=== PATIENT | female | born 1970 | race Caucasian/White ===

== ENCOUNTER 2017-09-19 12:58 | Day surgery (SDC) | payer MEDICARE ==
[~2017-09-19 12:58] MED LIST: Buffered Lidocaine 0.9% SYRIN* 5 ML/SYR SYRINGE INTRADERM ONE; Naloxone* 0.4 MG/ML 1 ML VIAL IV PRN; Ondansetron INJ* 2 MG/ML VIAL IV PRN; fentaNYL* 50 MCG/ML 2 ML VIAL (100 MCG VIAL) IV PRN
[2017-09-19] MEDS ORDERED: Buffered Lidocaine 0.9% SYRIN* 5 ML/SYR SYRINGE ONE (13:14)
[2017-09-19] MEDS ORDERED: fentaNYL* 50 MCG/ML 2 ML VIAL (100 MCG VIAL) ONE (15:11)
[2017-09-19] MEDS ORDERED: Midazolam* 1 MG/ML 2 ML VIAL (2 MG) ONE (15:11)
[2017-09-19] MEDS ORDERED: Propofol* 10 MG/ML 20 ML BTL IV PUSH ONE (15:47)
[2017-09-19] MEDS ORDERED: Lidocaine 2% PF * 5 ML VIAL ONE (15:47)
[2017-09-19] MEDS ORDERED: Naloxone* 0.4 MG/ML 1 ML VIAL IV PRN (15:55)
[2017-09-19 16:30] VITALS: BP 118/75
--- NOTE | 2017-09-20 03:38 | PRO ---
CC: KERWIN Sheehan * DATE OF PROCEDURE: 09/19/17 - [facility] OPERATIVE PROCEDURE: Esophagogastroduodenoscopy to the second portion of the duodenum. SURGEON: Yamilex Whitney MD ANESTHESIA: MAC. HISTORY OF PRESENT ILLNESS: Gertrude is a pleasant 47-year-old female who presents today for diagnostic endoscopy for morbid obesity and pre-bariatric screening for possible gastric sleeve. She denies any current gastrointestinal complaints, but does admit to a family history of gastric cancer. PREOPERATIVE DIAGNOSES: 1. Morbid obesity. 2. Pre-bariatric screening. 3. Family history of gastric cancer. POSTOPERATIVE DIAGNOSES: 1. Moderate antral gastritis with biopsies from the antrum and body with CLOtest to rule out H. pylori. 2. Normal appearing Z-line at 35 cm with biopsies. 3. Normal appearing duodenum to the second portion with biopsies to rule out celiac disease. 4. Normal mid and proximal esophagus. RECOMMENDATIONS: 1. We will follow up with biopsy results and determine further plan of care as necessary. DESCRIPTION OF PROCEDURE: Esophagogastroduodenoscopy was explained in detail to the patient. The risks, benefits, complications, alternatives, and possibilities of missed lesions were explained and understood. Complications included, but were not limited to reaction to anesthesia, aspiration, increased risk of bleeding and perforation. All questions were answered. The patient demonstrated understanding of the conversation and informed consent was obtained. Next, the patient was brought to the endoscopy suite, placed in the left lateral recumbent position where blood pressure, cardiac and oxygen monitors were applied. The patient was found to be a fit candidate for moderate anesthesia care. After adequate IV sedation was achieved, a bite-block was placed. Next, a standard adult endoscope was inserted per os under direct visualization to the first and second portions of duodenum. First and second portions of the duodenum were grossly unremarkable. Cold forceps biopsies were obtained to rule out celiac disease. Further withdrawal of the endoscope into the gastric lumen revealed moderate erythematous changes consistent with antral gastritis. Cold forceps biopsies were obtained from the antrum and body and CLOtest was performed to rule out H. pylori. On retroflexion, the patient had a normal gastric cardia sling. Further withdrawal of the endoscope into the distal esophagus revealed a normal appearing Z-line. Cold forceps biopsies were obtained from this area. The rest of the tubular esophagus was normal appearing. Air was then removed from the patient. Endoscope was removed from the patient. The patient tolerated the procedure well. There were no immediate complications. 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 Thank you, KERWIN Sheehan , for allowing us to participate in the care of your patient. If you should have any further questions or concerns, please do not hesitate to contact us. [id number]/[facility] #: [id number] JAYLA
== END 2017-09-19 16:51 | disposition home or self-care (01) ==
LOC: OR 12:58
PROVIDERS: ATTEND Internal Medicine Gastroenterology
DX: E66.01 Morbid (severe) obesity due to excess calories (principal); Z68.41 Body mass index [BMI] 40.0-44.9, adult; K29.50 Unspecified chronic gastritis without bleeding; K21.9 Gastro-esophageal reflux disease without esophagitis; E03.9 Hypothyroidism, unspecified; E78.00 Pure hypercholesterolemia, unspecified
CPT/HCPCS: 87077; 88305; 88342; J2250; J2704; J3010

== ENCOUNTER 2018-03-12 11:33 | Inpatient (IN) | payer MEDICARE, OTHER ==
[~2018-03-12 11:33] MED LIST changes: +Famotidine IV* 10 MG/ML 2 ML (20 mg) IV ONE; -Naloxone* 0.4 MG/ML 1 ML VIAL IV PRN; -Ondansetron INJ* 2 MG/ML VIAL IV PRN; -fentaNYL* 50 MCG/ML 2 ML VIAL (100 MCG VIAL) IV PRN
[2018-03-12] MEDS ORDERED: Famotidine IV* 10 MG/ML 2 ML (20 mg) ONE (11:52)
[2018-03-12] MEDS ORDERED: ceFAZolin 2 GM PREMIX (*) 2 GM/50 ML BAG IVPB ONE (11:52)
[2018-03-12] MEDS ORDERED: Buffered Lidocaine 0.9% SYRIN* 5 ML/SYR SYRINGE ONE (11:53)
[2018-03-12] MEDS ORDERED: Heparin VIAL(*) 5000 UNITS/ML VIAL (FIVE THOUSAND) ONE (11:57)
[2018-03-12] MEDS ORDERED: Dexamethasone IV* 4 MG/ML 1 ML (4 MG) ONE (11:58)
[2018-03-12] MEDS ORDERED: Ketorolac INJ* 30 MG/ML 1 ML VIAL ONE (11:58)
[2018-03-12] MEDS ORDERED: fentaNYL* 50 MCG/ML 5 ML VIAL (250 MCG VIAL) ONE (11:58)
[2018-03-12] MEDS ORDERED: Lidocaine 2% PF * 5 ML VIAL ONE (11:58)
[2018-03-12] MEDS ORDERED: Ondansetron INJ* 2 MG/ML VIAL ONE ×2 (11:58→16:03)
[2018-03-12] MEDS ORDERED: Midazolam* 1 MG/ML 5 ML VIAL (5 MG) ONE (11:58)
[2018-03-12] MEDS ORDERED: Propofol* 10 MG/ML 20 ML BTL IV PUSH ONE (11:58)
[2018-03-12] MEDS ORDERED: Neostigmine Methylsulfate* 2 MG/2 ML SYRINGE ONE (12:18)
[2018-03-12] MEDS ORDERED: Glycopyrrolate IV* 0.2 MG/ML 1 ML VIAL ONE (12:18)
[2018-03-12] MEDS ORDERED: Rocuronium* 10 MG/ML VIAL ONE (12:45)
[2018-03-12] MEDS ORDERED: Methylene Blue 0.5 %* 50 MG/10 ML AMP IV ONE (12:56)
[2018-03-12] MEDS ORDERED: Bupivacaine 0.5% PF 10 ML VIAL INJ ONE (12:59)
[2018-03-12] MEDS ORDERED: Bupivacaine 0.25% W/EPI* 10 ML SDV ONE (13:23)
[2018-03-12] MEDS ORDERED: EPHEDrine (Pressors)* 50 MG/ML VIAL ONE (14:10)
[2018-03-12] MEDS ORDERED: Scopolamine 1.5 mg* PATCH TRANSDERM PRN (14:59)
[2018-03-12] MEDS ORDERED: Naloxone* 0.4 MG/ML 1 ML VIAL IV PRN (14:59)
[2018-03-12] MEDS ORDERED: Ondansetron INJ* 2 MG/ML VIAL IV PRN (14:59)
[2018-03-12] MEDS ORDERED: fentaNYL* 50 MCG/ML 2 ML VIAL (100 MCG VIAL) ONE ×4 (15:46→17:12)
[2018-03-12] MEDS ORDERED: Acetaminophen ADULT LIQ* 650 MG/20.3 ML UDC PO PRN (15:52)
[2018-03-12] MEDS ORDERED: diPHENhydraMINE IV* 50 MG/ML 1 ml VIAL (BENADRYL) SLOW PUSH PRN (15:52)
[2018-03-12] MEDS ORDERED: Scopolamine 1.5 mg* PATCH ONE (16:02)
--- NOTE | 2018-03-12 16:02 | BRIEFOPN ---
Brief Operative Note - Surgery Procedures: PREOP DX: MORBID OBESITY POSTOP DX: SAME PROC: LRYGB SURG: MECENAS ASSIST: KYLE BELTRAN; Guille CALDERÓN MD ANES: GET/TOAL EBL: <50 ML IVF: 2.4 L LR SPEC: NONE DRAIN: NONE COMPL: NONE COND: STABLE TO RR; EXTUBATED. FINDINGS: OMENTAL ADHESIONS TO ABDOMINAL WALL MESH IN MID TO LOWER ABDOMEN.
[2018-03-12] MEDS: fentaNYL* 50 MCG/ML 2 ML VIAL (100 MCG VIAL) IV PRN ×5 (16:21→17:13)
[2018-03-12] MEDS: HYDROmorphone INJ* 0.5 MG/0.5 ML SYRINGE IV PRN ×2 (19:04→22:26)
[2018-03-12] MEDS: Famotidine IV* 10 MG/ML 2 ML (20 mg) IV SLOW PU SCH (21:29)
[2018-03-12] MEDS: Ondansetron INJ* 2 MG/ML VIAL IV PRN (22:55)
[2018-03-13] MEDS: HYDROmorphone INJ* 0.5 MG/0.5 ML SYRINGE IV PRN ×3 (01:44→09:12)
--- NOTE | 2018-03-13 04:20 | OP ---
: [facility]; Isabel MorenoKERWIN * DATE OF OPERATION: 03/12/18 - ROOM #353 DATE OF : 66. SURGEON: Darrell Gutiérrez MD ASSISTANTS: KYLE Harding and Yo Hanson MD PRE-OP DIAGNOSIS: Morbid obesity. POST-OP DIAGNOSIS: Morbid obesity. OPERATIVE PROCEDURE: Laparoscopic Tracy-en-Y gastric bypass. ESTIMATED BLOOD LOSS: Less than 50 mL. IV FLUIDS: 2.4 L crystalloid. SPECIMEN: None. DRAINS: None. COMPLICATIONS: None. COUNTS: Instrument, needle, sponge counts correct. OPERATIVE FINDINGS: There were extensive adhesions of the omentum to the abdominal wall hernia mesh, which was a 6 x 10 oval lightweight mesh covering in the area from just above the umbilicus to the lower abdomen more towards the right lower quadrant. DESCRIPTION OF PROCEDURE: The patient was brought to the operating room, placed on the table supine. Sequential compression devices were placed on both lower extremities. General anesthesia was administered. Arango catheter placed and she was positioned and padded appropriately. The time-out was performed after the prep and drape, and after she received antibiotics. Local anesthetic was infiltrated into the skin and soft tissue prior to each incision. Entry to the abdomen was through a left upper quadrant incision accommodating a 12-mm optical trocar. After accessing peritoneal cavity, carbon dioxide was insufflated to a pressure of 15 mmHg. Under direct visualization, 5-mm trocar was placed in the left upper quadrant laterally due to the presence of extensive omental adhesions in the mid abdomen. LigaSure was then used to complete the adhesiolysis and there was abdominal wall hernia mesh identified extending from just above the umbilicus down to the lower abdomen, which favored the right lower quadrant. After completing adhesiolysis in the mid abdomen, a 12-mm blunt port was placed in the supraumbilical region and then a 12-mm blunt port placed in the right upper quadrant. The adhesiolysis was completed completely freeing the omentum. The small bowel appeared to be free of any adhesions. Subsequently, a 5-mm trocar was placed in the right upper quadrant medially and then Melissa liver retractor was placed percutaneously in the subxiphoid position and used to elevate the left lobe of the liver. The gastric anatomy appeared normal. The cardia of the stomach was freed using a combination of blunt dissection and LigaSure and the left tali of the diaphragm was identified. Then, the perigastric dissection was undertaken in the lesser curvature to enter the lesser sac, and a gastric patch was created with several firings of the Endo-MIKE stapler with barrios cartridges. The gastric pouch approximated 20 to 30 mL volume. The staple lines were inspected and noted to be intact and hemostatic. The omentum was then retracted superiorly and ligament of Treitz was identified and the jejunum was measured out to 40 cm to 50 cm at this point. The jejunum was brought in proximity to the gastric pouch and then stay sutures of 2-0 silk were placed along the lateral gastric pouch staple line and then the gastrojejunal anastomosis was created with the Endo-MIKE stapler with a 30- mm cartridge, and this was closed with a running 3-0 PDS over a 34-American orogastric tube. Lastly , the loop was divided to the left of the anastomosis and then the gastrojejunal anastomosis was tested with methylene blue dye instilled through the orogastric tube, and no leak was identified. The Tracy limb was then measured out 75 cm and a functional end-to-side jejunojejunostomy was created with a 60-mm barrios cartridge on the linear stapler. The common enterotomy was run closed with 3-0 PDS running it to and fro. The mesenteric defect was closed with 3-0 silk and a combination of running in [id number] fashion. Inspection revealed the bowel to be oriented properly. Hemostasis was excellent. Ports were removed under direct visualization and carbon dioxide was released. Skin incisions were closed with 4-0 Monocryl in subcuticular fashion. Steri-strips were applied. The patient tolerated the procedure well, was extubated, and transferred to Recovery in stable condition. [id number]/[facility] #: [id number] [facility] HOSPITALYasir
[2018-03-13] MEDS: Heparin VIAL(*) 5000 UNITS/ML VIAL (FIVE THOUSAND) SUBCUT SCH ×3 (05:38→22:31)
[2018-03-13] MEDS: Ondansetron INJ* 2 MG/ML VIAL IV PRN ×3 (05:45→17:56)
--- NOTE | 2018-03-13 08:09 | PN ---
Progress Note - Progress Note Date of Service: 03/13/18 SOAP: Subjective: Minimal pain from incision. No N/V. Objective: Vital Signs Temp 98.6 F 03/13/18 07:15 Pulse 91 03/13/18 07:15 Resp 18 03/13/18 07:24 BP 136/56 03/13/18 07:15 Pulse Ox 98 03/13/18 07:24 Gen: NAD Abd: dressings c/d/i. soft and minimally tender. Intake & Output 03/12/18 03/13/18 03/13/18 18:59 06:59 18:59 Intake Total 2800 980 994 Output Total 375 1550 Balance 2425 -570 994 Weight 241 lb Intake: IV Fluids 2800 980 994 LR 2800 980 994 Oral 0 Output: Arango 375 1550 Other: # Bowel Movements 0 Assessment: POD#1 s/p LRYGB. Doing well. Plan: Adv diet. Ambulate. Home tomorrow.
[2018-03-13] MEDS: Famotidine IV* 10 MG/ML 2 ML (20 mg) IV SLOW PU SCH ×2 (09:13→21:09)
[2018-03-13] MEDS: Nystatin TOP POWDER* 15 GM BTL TOPICAL SCH ×4 (13:35→22:30)
[2018-03-13] MEDS: HYDROcodone/ACET. 7.5/325 LIQ* 15 ML UDC PO PRN ×2 (13:39→19:42)
[2018-03-13] MEDS: D5W 1/2 NS KCl 20 Meq 1000 ML* 1,000 ML IV SCH ×2 (13:58→22:35)
[2018-03-13] MEDS ORDERED: Levothyroxine TAB* 25 MCG TAB PO SCH (18:00)
[2018-03-13] MEDS ORDERED: Amitriptyline TAB* 50 MG PO SCH (21:00)
[2018-03-13] MEDS: BuPROPion XL* 150 MG TAB.XL PO SCH (21:08)
[2018-03-13] MEDS: Pregabalin CAP(*) 25 MG PO SCH (22:28)
[2018-03-14] MEDS: HYDROcodone/ACET. 7.5/325 LIQ* 15 ML UDC PO PRN ×2 (03:22→10:19)
[2018-03-14] MEDS: Heparin VIAL(*) 5000 UNITS/ML VIAL (FIVE THOUSAND) SUBCUT SCH (06:04)
[2018-03-14] MEDS: D5W 1/2 NS KCl 20 Meq 1000 ML* 1,000 ML IV SCH (06:42)
[2018-03-14] MEDS: Pregabalin CAP(*) 25 MG PO SCH (07:30)
[2018-03-14] MEDS: Famotidine IV* 10 MG/ML 2 ML (20 mg) IV SLOW PU SCH (07:30)
[2018-03-14] MEDS: Nystatin TOP POWDER* 15 GM BTL TOPICAL SCH (07:30)
[2018-03-14] MEDS: BuPROPion XL* 150 MG TAB.XL PO SCH (07:30)
[2018-03-14] MEDS: HYDROmorphone INJ* 0.5 MG/0.5 ML SYRINGE IV PRN (07:37)
[2018-03-14 09:23] VITALS: BP 145/70
--- NOTE | 2018-03-14 13:10 | DS ---
CC: Isabel Moreno NP * DISCHARGE SUMMARY: DATE OF ADMISSION: 03/12/18 DATE OF DISCHARGE: 03/14/18 PATIENT OF: Darrell Gutiérrez MD * (DICTATED BY KYLE HARMON) ADMISSION DIAGNOSES: 1. Morbid obesity. 2. Gastroesophageal reflux disease. 3. Hypertension. DISCHARGE DIAGNOSES: 1. Morbid obesity. 2. Gastroesophageal reflux disease. 3. Hypertension. ADMITTING PHYSICIAN: Darrell Gutiérrez MD CONSULTATIONS: None. PROCEDURES: Laparoscopic Tracy-en-Y gastric bypass on 03/12/18. BRIEF MEDICAL HISTORY: Mrs. Vincent is a pleasant 47-year-old female who has been struggling with morbid obesity and associated complication for most of her adult life. She has tried multiple attempts to lose weight with dietary and exercise regimen that unfortunately failed to maintain any weight loss. She was evaluated at the [facility] and found to be a good candidate for a gastric bypass surgery to be performed on a later date. HOSPITAL COURSE: The patient was admitted on 03/12/18 via Same-Day Surgery and was brought to the operating room later that day. She underwent a laparoscopic Tracy-en- Y gastric bypass by Dr. Gutiérrez that went smoothly with no immediate complications. After recovery, she was transferred to the surgical floor for observation. She did relatively well with only mild incisional discomfort that was well tolerated using pain medicine as needed. She was ambulatory out of bed on the same night and denied any significant complaints. Her vitals were checked on a regular basis and the patient was afebrile. On the following morning, she started bariatric stage 1 clear liquid diet that she tolerated well. She had no complaints of nausea or vomiting, only occasional epigastric discomfort from "gas pain" that eventually went away upon discharge. On discharge morning, she was in a good spirit, walking around, and ready to go home. Her abdominal exam revealed soft abdomen, nontender, and nondistended and her incisions were clean, dry, and intact. She will be discharged home today and will follow up with Dr. Gutiérrez next week at the [facility]. DISCHARGE MEDICATIONS: Include: 1. Amitriptyline 50 mg p.o. q.h.s. 2. Bupropion 150 mg p.o. b.i.d. 3. Tums chewable 1 to 2 tablets p.o. as needed for heartburn. 4. Flexeril 10 mg p.o. b.i.d. 5. Synthroid 25 mcg p.o. daily. 6. Multivitamin chewable 1 tablet daily. 7. Lortab Elixir 1 tablespoon every 4 to 6 hours as needed for pain. 8. MiraLAX 17 g packet p.o. q. day as needed for constipation. 9. Lyrica 75 mg p.o. b.i.d. 10. Rosuvastatin 10 mg p.o. q.h.s. 11. Ambien 5 mg p.o. q.h.s. as needed for insomnia. PROBLEM LIST: Morbid obesity, status post laparoscopic Tracy-en-Y gastric bypass on 03/12/18. KYLE HARMON [id number]/[facility] #: [id number] [facility]ERYasir
[2018-03-15] MEDS ORDERED: Scopolamine PATCH Remove* 1 NOTE MISC PATCH OFF ONE (15:01)
== END 2018-03-14 10:40 | disposition home or self-care (01) | DRG 621 ==
LOC: AA 11:33 → SSU 15:52
PROVIDERS: ADMIT Surgery; ATTEND Surgery
PROC: 0DNU4ZZ Release Omentum, Percutaneous Endoscopic Approach (ICD-10-PCS; 2018-03-12)
PROC: 0D164ZA Bypass Stomach to Jejunum, Percutaneous Endoscopic Approach (ICD-10-PCS; principal; 2018-03-12 13:15)
DX: E66.01 Morbid (severe) obesity due to excess calories (principal); K21.9 Gastro-esophageal reflux disease without esophagitis; I10 Essential (primary) hypertension; G47.33 Obstructive sleep apnea (adult) (pediatric); E78.5 Hyperlipidemia, unspecified; G89.29 Other chronic pain; M54.9 Dorsalgia, unspecified; K66.0 Peritoneal adhesions (postprocedural) (postinfection); F41.9 Anxiety disorder, unspecified; F32.9 Major depressive disorder, single episode, unspecified; M19.90 Unspecified osteoarthritis, unspecified site; E03.9 Hypothyroidism, unspecified; M79.7 Fibromyalgia; Z96.9 Presence of functional implant, unspecified; Z90.722 Acquired absence of ovaries, bilateral; Z90.49 Acquired absence of other specified parts of digestive tract; Z98.1 Arthrodesis status; Z80.0 Family history of malignant neoplasm of digestive organs; Z80.3 Family history of malignant neoplasm of breast; Z82.61 Family history of arthritis; Z68.41 Body mass index [BMI] 40.0-44.9, adult; Z88.8 Allergy status to other drugs, medicaments and biological substances; Z91.041 Radiographic dye allergy status; Z83.3 Family history of diabetes mellitus; Z82.49 Family history of ischemic heart disease and other diseases of the circulatory system; Z80.8 Family history of malignant neoplasm of other organs or systems; Z88.5 Allergy status to narcotic agent
CPT/HCPCS: 43644; A9270-GY; C1776; J0690; J1100; J1170; J1200; J1644; J1885; J2250; J2405; J2704; J3010

== ENCOUNTER 2018-11-24 11:53 | Emergency (ER) | payer MEDICARE ==
--- NOTE | 2018-11-24 13:39 | ED ---
Lower Extremity - HPI Summary HPI Summary: Patient's a 48-year-old female presenting to the ED with a right ankle injury. She states she was walking her dogs when she twisted her right ankle. She has been unable to ambulate since that time. This occurred 3 hours [employer]LECT[employer]. She has not taken anything [id number] for relief. She denies any swelling or ecchymosis. Denies any numbness or tingling. She states she is otherwise healthy, takes no medications and denies any blood thinners. She has never injured the ankle the past. - History of Current Complaint Chief Complaint: EDExtremityLower Stated Complaint: RT ANKLE INJURY PER PT Time Seen by Provider: 11/24/18 12:09 Hx Obtained From: Patient Mechanism Of Injury: Twisted Onset of Pain: Hours Onset/Duration: Hours Severity Initially: Mild Severity Currently: Mild Pain Intensity: 8 Pain Scale Used: 0-10 Numeric Location: Is Discrete @ - right ankle pain without swelling or ecchymosis Character Of Pain: Aching Associated Signs And Symptoms: Negative: Swelling, Redness, Bruising Aggravating Factor(s): Standing, Ambulation Alleviating Factor(s): Rest Able to Bear Weight: No - Risk Factors Gout Risk Factors: Negative DVT Risk Factors: Negative Septic Arthritis Risk Factor: Negative - Allergies/Home Medications Allergies/Adverse Reactions: Allergies Allergy/AdvReac Type Severity Reaction Status Date / Time celecoxib [From Celebrex] Allergy rash, Verified 11/24/18 11:59 ITCHING, DIFFICULTY BREATHING codeine Allergy Stomach Verified 11/24/18 11:59 Cramps duloxetine Allergy rash, Verified 11/24/18 11:59 ITCHING, DIFFICULTY BREATHING Iodinated Contrast- Oral and Allergy rash, Verified 11/24/18 11:59 IV Dye ITCHING, DIFFICULTY BREATHING PMH/Surg Hx/FS Hx/Imm Hx Previously Healthy: Yes Endocrine/Hematology History: Reports: Hx Thyroid Disease - hypo Cardiovascular History: Denies: Other Cardiovascular Problems/Disorders Respiratory History: Reports: Hx Asthma - WHEN YOUNGER-SPORTS INDUCED, Hx Sleep Apnea Denies: Other Respiratory Problems/Disorders GI History: Reports: Hx Gastroesophageal Reflux Disease - PRN TUMS, Hx Hiatal Hernia, Other GI Disorders - CONSTIPATION Musculoskeletal History: Reports: Hx Arthritis - osteo, all over, Other Musculoskeletal History - fibromyalgia Sensory History: Denies: Hx Contacts or Glasses, Hx Hearing Aid Opthamlomology History: Denies: Hx Contacts or Glasses Neurological History: Reports: Other Neuro Impairments/Disorders - FIBROMYALGIA Psychiatric History: Reports: Hx Anxiety - ON MEDICATION FOR, Hx Depression - ON MEDICATION FOR - Surgical History Surgery Procedure, Year, and Place: spinal stimulator. , hysterectomy,, 2011, [facility] lumbar with fusion, x3 , 2003 and 2010, [facility]. thyroidectomy, partial, 1998. c sections, 1986 and 1990, [facility], [place] gallbladder, 2006, [place], [place]. hernia with mesh, 2003, [facility], [place] APPENDECTOMY-1989 Hx Anesthesia Reactions: Yes - difficulty waking up - Immunization History Hx Pertussis Vaccination: No Immunizations Up to Date: Yes Infectious Disease History: No Infectious Disease History: Denies: Traveled Outside the in Last 30 Days - Social History Occupation: Employed Full-time Lives: With Family Alcohol Use: None Hx Substance Use: No Substance Use Type: Reports: None Hx Tobacco Use: No Smoking Status (MU): Never Smoked Tobacco Review of Systems Constitutional: Negative Negative: Fever, Chills, Fatigue, Skin Diaphoresis Negative: Epistaxis, Dental Pain Negative: Palpitations, Chest Pain Negative: Shortness Of Breath, Cough Positive: Arthralgia, Myalgia Skin: Negative Neurological: Negative All Other Systems Reviewed And Are Negative: Yes Physical Exam Triage Information Reviewed: Yes Vital Signs On Initial Exam: Initial Vitals Temp Pulse Resp BP Pulse Ox 97.9 F 89 18 97/79 100 11/24/18 11:56 11/24/18 11:56 11/24/18 11:56 11/24/18 11:56 11/24/18 11:56 Vital Signs Reviewed: Yes Appearance: Positive: Well-Appearing, Well-Nourished Skin: Positive: Warm, Skin Color Reflects Adequate Perfusion Head/Face: Positive: Normal Head/Face Inspection Eyes: Positive: EOMI, Conjunctiva Clear Neck: Positive: Nontender, No Lymphadenopathy Respiratory/Lung Sounds: Positive: Clear to Auscultation, Breath Sounds Present Cardiovascular: Positive: RRR, Pulses are Symmetrical in both Upper and Lower Extremities Musculoskeletal: Positive: Pain @ - pain to lateral portion of the ankle Neurological: Positive: Sensory/Motor Intact, Alert, Oriented to Person Place, Time, Speech Normal Psychiatric: Positive: Normal, Affect/Mood Appropriate AVPU Assessment: Alert Diagnostics - Vital Signs Vital Signs Temp Pulse Resp BP Pulse Ox 11/24/18 11:56 97.9 F 89 18 97/79 100 - Laboratory Lab Statement: Any lab studies that have been ordered have been reviewed, and results considered in the medical decision making process. Lower Extremity Course/Dx - Course Course Of Treatment: Patient is evaluated for right ankle injury. On physical examination, pulses +2 intact bilaterally. Spiral fracture of the distal fibula on x-ray. Posterior walking splint placed. NV intact pre-and post fabricated splint. Patient will follow-up with orthopedics. She states she has crutches at home and declines these on discharge. She is encouraged elevation above the heart, ibuprofen and nonweightbearing. - Diagnoses Differential Diagnosis/HQI/PQRI: Positive: Fracture (Closed), Fracture (Open) Provider Diagnoses: Fracture of distal fibula Discharge - Sign-Out/Discharge Documenting (check all that apply): Patient Departure Patient Received Moderate/Deep Sedation with Procedure: No - Discharge Plan Condition: Stable Disposition: HOME Patient Education Materials: Ankle Fracture (ED) Referrals: Buster Jin MD [Medical Doctor] - Isabel Agudelo [Primary Care Provider] - Additional Instructions: Please follow up with Dr. Mistry or Dr. Haq I have given you the referral information Call sunday morning for an appt Keep the splint dry Ibuprofen 600mg three times daily x 3-5 days Elevate the leg above the heart as much as possible Do not bear weight onto the foot/leg until follow up with ortho - Billing Disposition and Condition Condition: STABLE Disposition: Home
[2018-11-24 14:02] VITALS: BP 124/75
== END 2018-11-24 13:59 | disposition home or self-care (01) ==
LOC: ED 11:53
DX: S82.831A Other fracture of upper and lower end of right fibula, initial encounter for closed fracture (principal); X50.1XXA Overexertion from prolonged static or awkward postures, initial encounter; Y93.K1 Activity, walking an animal; Y92.9 Unspecified place or not applicable; K21.9 Gastro-esophageal reflux disease without esophagitis; K44.9 Diaphragmatic hernia without obstruction or gangrene; F41.9 Anxiety disorder, unspecified; F32.9 Major depressive disorder, single episode, unspecified; Z88.5 Allergy status to narcotic agent; Z88.8 Allergy status to other drugs, medicaments and biological substances; Z91.041 Radiographic dye allergy status
CPT/HCPCS: 99282

== ENCOUNTER 2018-11-27 08:29 | Day surgery (SDC) | payer MEDICARE, OTHER ==
[~2018-11-27 08:29] MED LIST changes: -Buffered Lidocaine 0.9% SYRIN* 5 ML/SYR SYRINGE INTRADERM ONE; +Buffered Lidocaine 1% SYRIN* 1 ML/SYRINGE INTRADERM ONE; -Famotidine IV* 10 MG/ML 2 ML (20 mg) IV ONE; +Lactated Ringers 1000 ML Bag* 1,000 ML IV SCH; +Sodium Citrate/Citric Acid* 15 ML UDC PO ONE
[2018-11-27] MEDS ORDERED: Buffered Lidocaine 1% SYRIN* 1 ML/SYRINGE INTRADERM ONE (08:58)
[2018-11-27] MEDS ORDERED: Sodium Citrate/Citric Acid* 15 ML UDC ONE (09:18)
[2018-11-27] MEDS ORDERED: ceFAZolin 2 GM in NS PREMIX(*) 2 GM/100 ML BAG IVPB ONE (09:18)
[2018-11-27] MEDS ORDERED: fentaNYL* 50 MCG/ML 2 ML VIAL (100 MCG VIAL) ONE ×2 (10:20→11:53)
[2018-11-27] MEDS ORDERED: Midazolam* 1 MG/ML 2 ML VIAL (2 MG) ONE (10:20)
[2018-11-27] MEDS ORDERED: ROPIVACAINE 5 MG/ML 30 ML BTL (0.5%) ONE (10:29)
[2018-11-27] MEDS ORDERED: Propofol* 10 MG/ML 20 ML BTL ONE (10:51)
[2018-11-27] MEDS ORDERED: Lidocaine 2% PF * 5 ML VIAL ONE (10:51)
[2018-11-27] MEDS ORDERED: Dexamethasone IV* 4 MG/ML 1 ML (4 MG) ONE (11:10)
[2018-11-27] MEDS ORDERED: DiMENhydriNATE IV* 50 MG/ML VIAL IV PUSH PRN (11:21)
[2018-11-27] MEDS ORDERED: Naloxone* 0.4 MG/ML 1 ML VIAL IV PRN (11:21)
--- NOTE | 2018-11-27 11:50 | OP ---
Operative Report - Blank - Operative Report Date of Operation: 11/27/18 Note: PATIENT: Gertrude Vincent DATE OF : 1970 DATE OF SURGERY: 11/27/2018 SURGEON: Buster Jin MD HANDLE ROUNDER OPERATOR: KYLE Tobar, whos assistance was necessary for positioning, retraction, help with instrumentation, and closure. ANESTHESIOLOGIST: Dr. Cruz PREOPERATIVE DIAGNOSIS: Right ankle fracture POSTOPERATIVE DIAGNOSIS: Right ankle fracture OPERATION: 1. Right ankle lateral malleolar fracture open reduction and internal fixation. 2. Stress views performed by surgeon utilizing fluoroscopy under anesthesia. ANESTHESIA: General IMPLANTS: Arthrex ankle fracture plate and screws TOURNIQUET TIME: Less than 1 hour with a well-padded thigh tourniquet at 250mmHg SPECIMENS: none ESTIMATED BLOOD LOSS: minimal COMPLICATIONS: none STATUS: Stable from the operating room to the recovery room and then home. INDICATIONS FOR PROCEDURE: Gertrude sustained a right ankle fracture. Both operative and non operative treatment alternatives were reviewed. Further, the nature and risks of surgery were reviewed in careful detail, in the office as well as the pre-operative holding area. Our discussions regarding the risks of surgery included, but were not limited to, infection, wound problems, nerve injury, neuroma, RSD, persistent symptoms, blood clot, nonunion, malunion, post-traumatic arthritis, hardware failure, failure of the surgery, and even the remote chance of catastrophic complication, including loss of limb. DESCRIPTION OF PROCEDURE: The patient was seen in the preoperative holding unit and informed written consent was obtained. The appropriate extremity was marked. The patient was then brought to the operating room and carefully positioned on the operating room table. Anesthesia was induced. All bony prominences were padded with great care. A well-padded thigh tourniquet was placed. A chlorhexidine based pre- scrub was performed followed by a chloraprep prep and drape in standard sterile fashion. A surgical safety pause was then conducted in which we confirmed the appropriate patient, extremity, planned procedure, availability of equipment, indication and administration of prophylactic antibiotics, and DVT prophylaxis in the form of a compression boot on the non-surgical extremity. I began with Esmarch exsanguination of the limb and inflated the tourniquet. I then utilized a laterally based incision overlying the distal fibula. Great care was taken to protect the superficial peroneal nerve, which was not visualized within the field of view. I dissected down through the soft tissue layers to expose the distal fibula. I then exposed the fracture. Fracture hematoma was removed. I gained a reduction utilizing a pointed reduction clamp and then held this provisionally with K-wires. I placed an Arthrex anatomic fibula plate laterally and then confirmed the reduction and the position of the plate fluoroscopically. I placed screws to hold the plate to the bone. The provisional fixation was removed and then I again confirmed fluoroscopically the appropriate position of the plate and screw lengths. At this point, I performed a stress fluoroscopic examination. I utilized a Cotton test, as well as an external rotation stress test, to evaluate the distal tib-fib syndesmosis. There was no instability appreciated through the syndesmosis. At this point, we irrigated copiously and then closed in layers meticulously utilizing 3-0 Monocryl for the deep and subdermal layers and martha for the skin. A sterile dressing was then applied followed by a splint with the ankle in a neutral position. The patient was then awakened from anesthesia and transferred to the recovery room in stable condition. There were no complications. All needle and sponge counts were correct at the end of the case. ATTESTATION: I attest I was present and scrubbed and performed the critical portions of the procedure myself. POSTOPERATIVE PLAN: The postop plan is for [id number] for an anticipated duration of 6 weeks. Follow-up will be in 2 weeks. At that time we will likely transition into a tly-fwedqj-slqvffj aircast boot.
[2018-11-27] MEDS ORDERED: oxyCODONE TAB* 5 MG TAB ONE (11:53)
[2018-11-27] MEDS: fentaNYL* 50 MCG/ML 2 ML VIAL (100 MCG VIAL) IV PRN ×2 (11:56→12:16)
[2018-11-27 13:04] VITALS: BP 117/66
== END 2018-11-27 13:33 | disposition home or self-care (01) ==
LOC: OR 08:29
PROVIDERS: ATTEND Orthopaedic Surgery
DX: S82.61XA Displaced fracture of lateral malleolus of right fibula, initial encounter for closed fracture (principal); W01.0XXA Fall on same level from slipping, tripping and stumbling without subsequent striking against object, initial encounter; Y93.89 Activity, other specified; Y92.9 Unspecified place or not applicable; M19.90 Unspecified osteoarthritis, unspecified site; F41.8 Other specified anxiety disorders; M79.7 Fibromyalgia; G47.33 Obstructive sleep apnea (adult) (pediatric); Z68.30 Body mass index [BMI] 30.0-30.9, adult; E03.9 Hypothyroidism, unspecified; K21.9 Gastro-esophageal reflux disease without esophagitis; Z79.891 Long term (current) use of opiate analgesic
CPT/HCPCS: 76000; A9270-GY; C1713; J0690; J1100; J2250; J2704; J2795; J3010